=== PATIENT | female | born 1965 | race American Indian/Alaskan Native ===

== ENCOUNTER 2023-10-04 11:48 | Emergency (ER) | payer MEDICAID ==
[~2023-10-04] VITALS: Ht 170.2 cm; Wt 85.0 kg
[2023-10-04] MEDS ORDERED: NAPR500T6 PO (12:52)
[2023-10-04] MEDS ORDERED: naproxen sodium 220mg tablet PO SCH (12:55)
[2023-10-04] MEDS: bacitracin 15gm ointment TP ONE (13:00)
[2023-10-04] MEDS: TETanus/Pertussis (Acell)/Diphther VAC/PF (Tdap-Adult) 0.5ml syringe IMVAC ONE (13:02)
[2023-10-04] MEDS: naproxen sodium 220mg tablet PO ONE (13:02)
[2023-10-04 14:33] VITALS: BP 145/79; PULSE 84; RESP 17; TEMP 97.4; O2SAT 100
== END 2023-10-04 14:36 | disposition home or self-care (01) ==
LOC: ER 11:49
DX: S52.124A Nondisplaced fracture of head of right radius, initial encounter for closed fracture (principal); S90.511A Abrasion, right ankle, initial encounter; Z79.1 Long term (current) use of non-steroidal anti-inflammatories (NSAID); Z91.040 Latex allergy status; W18.39XA Other fall on same level, initial encounter; Y93.89 Activity, other specified; Y92.89 Other specified places as the place of occurrence of the external cause; Y99.8 Other external cause status
CPT/HCPCS: 73080; 73610; 90715; 99284; A4565; A6449